=== PATIENT | female | born 2000 | race Caucasian/White ===

== ENCOUNTER 2024-02-02 00:54 | Emergency (ER) | payer BC, OTHER ==
[2024-02-02 01:14] VITALS: BP 160/97; RESP 18; TEMP 98; BMI 29.2
[2024-02-02] MEDS ORDERED: diphenhydrAMINE HCL 25 MG CAPSULE (FP) PO ONE (01:43)
[2024-02-02] MEDS: diphenhydrAMINE HCL 50 MG CAPSULE PO ONE (01:44)
[2024-02-02] MEDS ORDERED: HYDROCORTISONE 2.5% TOPICAL CREAM 30 GM TUBE TP SCH (01:45)
[2024-02-02 01:55] VITALS: PULSE 96
[2024-02-02] MEDS: HYDROCORTISONE 2.5% TOPICAL CREAM 30 GM TUBE TP ONE (01:56)
== END 2024-02-02 01:57 | disposition home or self-care (01) ==
LOC: JER 00:54
DX: R21 Rash and other nonspecific skin eruption (principal); L30.1 Dyshidrosis [pompholyx]; L29.9 Pruritus, unspecified
CPT/HCPCS: 99283-25